=== PATIENT | female | born 1990 | race Caucasian/White ===

== ENCOUNTER 2021-09-09 15:07 | Emergency (ER) | payer OTHER, SELFPAY ==
[2021-09-09 15:17] VITALS: BP 115/77; PULSE 101; RESP 16; TEMP 37.3; O2SAT 98
--- NOTE | 2021-09-09 16:37 | ED.URI ---
HPI - URI/Sore Throat General Chief Complaint: Upper Respiratory Infection Stated Complaint: COUGH Time Seen by Provider: 09/09/21 16:20 Source: patient, RN notes reviewed and old records reviewed Mode of arrival: ambulatory Limitations: no limitations History of Present Illness HPI Narrative: 31-year-old female presents to [facility] with sore throat, cough, runny nose, body aches, sneezing itchy throat for the past 3 days. Patient states she was at work Monday evening started feeling very bad and went home early and has not worked since that day. Her boss stated she needed to be seen since she had missed 3 days of work before returning to work. Patient has had Covid vaccinations but no flu shot. Patient reports history of asthma when in high school but has not had any issues with her breathing in many years. Patient does smoke half pack a day cigarettes. MD elicited complaint: cough, sore throat, rhinorrhea, nasal congestion and other (Sneezing, body aches) Pertinent past history: pneumonia, asthma and other (Tobacco abuse) Onset (ago): day(s) (3) Related Data Allergies Allergy/AdvReac Type Severity Reaction Status Date / Time No Known Allergies Allergy Verified 09/09/21 16:32 Review of Systems Review of Systems: CONSTITUTIONAL:Low grade fever, chills, or sweats. EYES: Denies visual changes, redness, or discharge. ENT: Positive rhinorrhea, congestion, sore throat, sneezing, no otalgia. CARDIOVASCULAR: Denies chest pain, palpitations, or edema. RESPIRATORY: Positive for cough no acute dyspnea. GASTROINTESTINAL: Denies abdominal pain, nausea, vomiting, or diarrhea. GENITOURINARY: Denies dysuria or hematuria. SKIN: Denies rash or itching. MUSCULOSKELETAL: Denies back pain, joint pain,positive for body aches NEUROLOGIC: Denies headache, numbness, or weakness. PSYCHIATRIC: Denies anxiety or depression. All systems reviewed & are unremarkable except as noted in HPI and below PMFSH Past Medical History Medical History (Updated 09/09/21 @ 17:07 by Kourtney Montana NP) Asthma Pneumonia Social History Social History (Updated 09/09/21 @ 17:09 by Kourtney Montana NP) Smoking packs per day: 0.5 Smoking cigarettes per day: 10.0 Smoking status: Current every day smoker Tobacco type: cigarettes Alcohol intake: current Alcohol use details: Social Substance use: never Living arrangements: alone Gender identity (if verbalized by the patient): Female Comments At time of signature, agree with nursing past medical, surgical, social and family history. There is no relevant family history pertinent to the presenting complaint Exam Narrative: GENERAL: Ill-appearing, well-nourished, and in no acute distress. HEAD: Normocephalic, atraumatic. EYES: PERRLA and EOMI. ENT: Nares red with clear rhinorrhea no epistaxis. Mucous membranes moist.TM's normal with good light reflex, throat red with no lesions or exudates no tonsil enlargement. NECK: Supple. no lymphadenopathy CHEST: Clear to auscultation. No respiratory distress.cough, SAO2 98% HEART: Regular rate and rhythm. No murmur heard. Normal peripheral pulses. ABDOMEN: Soft, nontender, nondistended, normal active bowel sounds. EXTREMITIES: Normal range of motion. No edema. SKIN: Warm, dry, no rash. NEURO: No focal deficits. Alert and oriented x3. Course Course Level of Care: Express Care Visit Vital Signs Vital signs: Vital Signs Temperature 37.3 C 09/09/21 15:17 Pulse Rate 101 H 09/09/21 15:17 Respiratory Rate 16 09/09/21 15:17 Blood Pressure 115/77 09/09/21 15:17 Pulse Oximetry 98 09/09/21 15:17 Temperature 37.3 C 09/09/21 15:17 Pulse Rate 101 H 09/09/21 15:17 Respiratory Rate 16 09/09/21 15:17 Blood Pressure 115/77 09/09/21 15:17 Pulse Oximetry 98 09/09/21 15:17 MDM - URI/Sore Throat Differential Diagnosis Differential diagnosis: Likely upper respiratory infection, sinusitis, viral infection, influenza, pharyngi
== END 2021-09-09 16:55 | disposition home or self-care (01) ==
PROVIDERS: Nurse Practitioner; Emergency Provider Registered Nurse
DX: U07.1 COVID-19 (principal); F17.210 Nicotine dependence, cigarettes, uncomplicated; J45.909 Unspecified asthma, uncomplicated
CPT/HCPCS: 87426; 99213; C9803; G0463

== ENCOUNTER 2021-09-14 15:01 | Emergency (ER) | payer OTHER, SELFPAY ==
--- NOTE | ~2021-09-14 | XR_ITS ---
EXAMINATION: XR chest 2V DATE: 09/14/2021 16:01 INDICATION: Chest pain. Cough. TECHNIQUE: Frontal and lateral views of the chest were obtained. COMPARISON: None. FINDINGS: The chest demonstrates clear lungs without pneumonia, pleural effusion, or pneumothorax. Th e heart size is normal. IMPRESSION: 1. No acute cardiopulmonary disease. Reviewed, dictated and finalized at location B. 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
[2021-09-14 15:18] VITALS: BP 114/83; PULSE 95; RESP 16; TEMP 36.6; O2SAT 98
--- NOTE | 2021-09-14 15:40 | ED.URI ---
HPI - URI/Sore Throat General Chief Complaint: Upper Respiratory Infection Stated Complaint: cp Time Seen by Provider: 09/14/21 15:40 Source: patient, RN notes reviewed and old records reviewed Mode of arrival: ambulatory Limitations: no limitations History of Present Illness HPI Narrative: 31-year-old female presents to the [facility] with continued COVID symptoms. Patient states that she is not feeling completely better. Was diagnosed on 09 09 with COVID. Patient is a smoker. Is concerned she might have pneumonia now. Related Data Allergies Allergy/AdvReac Type Severity Reaction Status Date / Time No Known Allergies Allergy Verified 09/15/21 14:54 Review of Systems Review of Systems: All systems reviewed & are unremarkable except as noted in HPI and below Constitutional: Constitutional: Reports no additional constitutional complaints, Denies chills, Denies fever(s) and Denies headache(s) Eyes: Eyes: Reports no additional eye complaints ENT: Reports as per HPI, Denies vertigo, Denies dizziness, Denies headache(s), Denies nasal congestion and Denies sore throat Cardiovascular: Cardiovascular: Reports no additional cardiovascular complaints, Denies chest pain, Denies syncope, Denies rapid heart rate, Denies radiating jaw, neck or arm pain and Denies dyspnea Respiratory: Respiratory: Reports as per HPI, Reports chest congestion, Reports cough, Denies dyspnea and Denies wheezing Gastrointestinal: Gastrointestinal: Reports no additional gastrointestinal complaints, Denies abdominal pain, Denies diarrhea, Denies nausea and Denies vomiting Musculoskeletal: Musculoskeletal: Reports no additional musculoskeletal complaints and Denies numbness Integumentary/Breasts: Skin/Breast: Reports system reviewed and no additional complaints, except as docu Neurologic: Reports system reviewed and no additional complaints, except as documented, Denies vertigo, Denies dizziness, Denies syncope, Denies headache(s), Denies focal weakness and Denies numbness Psychiatric: Psychiatric: Reports no additional psychiatric complaints Allergic/Immunologic: Allergic/Immunologic: Reports no additional allergic/immunologic complaints and Denies wheezing PMFSH Past Medical History Medical History Asthma Pneumonia Social History Social History Smoking packs per day: 0.5 Smoking cigarettes per day: 10.0 Smoking status: Current every day smoker Tobacco type: cigarettes Alcohol intake: current Alcohol use details: Social Substance use: never Gender identity (if verbalized by the patient): Female Comments At the time of my signature, I reviewed and agree with the nursing past medical, surgical, social, and family history. There is no relevant family history pertinent to the patient complaint. Exam Const: General: cooperative, no acute distress, well developed, alert and ill appearing (mild) acutely Nutritional Appearance: well nourished Orientation/consciousness: patient oriented x3 Limitations: no limitations HENMT: Head: normal to inspection Eyes: Conjunctivae: conjunctivae normal Pupils: Equal, round and reactive pupils present Neck: Neck: normal visual inspection, no lymphadenopathy and no meningeal signs Chest: Chest palpation & inspection: normal inspection of the chest Resp: Effort & Inspection: normal respiratory effort and no use of accessory muscles Auscultation: clear to auscultation bilaterally, no crackles, no rales, no rhonchi and no wheezes Cardio: Rate: regular rate Rhythm: regular rhythm Back/Spine/Pelvis: Back: no CVA tenderness Skin: General skin exam: normal color Rashes: no rashes Wounds: no wounds Neuro: General: patient oriented x3, moves all extremities, no meningeal signs and no focal motor deficits Cranial nerves: Yes Equal, round and reactive pupils present Speech: normal speech Gait exam (Neuro): N
== END 2021-09-14 16:28 | disposition home or self-care (01) ==
PROVIDERS: Emergency Provider Nurse Practitioner
DX: U07.1 COVID-19 (principal); J20.8 Acute bronchitis due to other specified organisms; F17.210 Nicotine dependence, cigarettes, uncomplicated; J45.909 Unspecified asthma, uncomplicated
CPT/HCPCS: 71046; 99213; G0463

== ENCOUNTER 2021-09-15 13:18 | Emergency (ER) | payer OTHER, SELFPAY ==
[2021-09-15 13:30] VITALS: BP 125/83; PULSE 89; RESP 24; TEMP 36.6; O2SAT 100
--- NOTE | 2021-09-15 15:26 | ED.GENADULT ---
HPI - General Adult General Chief complaint: Shortness of Breath/Dyspnea Stated complaint: Rule out blood clot Time Seen by Provider: 09/15/21 14:49 History of Present Illness HPI narrative: 31-year-old female that tested positive for COVID on September 09 presents to the emergency department complaining of chest pain chest tightness and shortness of breath. Patient did have follow-up with her primary care physician and did have a chest x-ray performed yesterday. Chest x-ray showed no acute abnormality. Patient states that she does feel increasing shortness of breath with exertion. Patient does report some anterior chest tightness. Patient was referred to the emergency department for a PE work-up. Patient denies any prior history of PE or DVT. Related Data Allergies Allergy/AdvReac Type Severity Reaction Status Date / Time No Known Allergies Allergy Verified 09/15/21 14:54 Review of Systems Review of Systems: CONSTITUTIONAL: Generalized fatigue EYES: Denies visual changes, redness, or discharge. ENT: Denies rhinorrhea, congestion, sore throat, or otalgia. CARDIOVASCULAR: Chest tightness RESPIRATORY: Exertional shortness of breath. GASTROINTESTINAL: Denies abdominal pain, nausea, vomiting, or diarrhea. GENITOURINARY: Denies dysuria or hematuria. SKIN: Denies rash or itching. MUSCULOSKELETAL: Denies back pain, joint pain, or myalgia. NEUROLOGIC: Denies headache, numbness, or weakness. PSYCHIATRIC: Denies anxiety or depression. [facility] Past Medical History Medical History Asthma Pneumonia Social History Social History Smoking packs per day: 0.5 Smoking cigarettes per day: 10.0 Smoking status: Current every day smoker Tobacco type: cigarettes Alcohol intake: current Alcohol use details: Social Substance use: never Gender identity (if verbalized by the patient): Female Exam Narrative: APPEARANCE: Well appearing, no pain in distress, well-nourished. HEAD: normocephalic, atraumatic. RESPIRATORY: Airway patent, respirations nonlabored. Clear to auscultation bilaterally, no rales, rhonchi, wheezing. CARDIOVASCULAR: Regular rate and rhythm without murmurs rubs or gallops. ABDOMINAL: Soft, nontender, nondistended, normal bowel sounds MUSCULOSKELETAL: Moves all extremities. Strength/ROM intact, No edema, No calf tenderness. NEURO: Alert. Cranial nerves II through XII intact. Good gait. Good coordination SKIN: Warm, dry. Normal Color PSYCHIATRIC: Normal affect/mood. Course Course Emergency Course: Patient was updated on the plan for labs including a D-dimer. Reevaluation(s) Reevaluation #1: Patient was updated on the results of her labs and work-up. Patient is not tachycardic. Patient is not hypoxic. Patient's D-dimer was negative. Patient did have a negative chest x-ray. Albuterol is being ordered to see if this helps with her sensation of chest tightness. Patient was updated the plan for treatment of her discharge to home. Patient was also advised on the importance having close follow-up with her primary care physician if she had any worsening symptoms. All questions and concerns were addressed. Patient was in no distress at time of discharge from emergency room. Time: 16:23 Reevaluation #2: Patient reports she had significant improvement of her breathing with the reading treatment. On reexamination lungs are still clear. Time: 16:51 Vital Signs Vital signs: Vital Signs Temperature 97.8 F 09/15/21 13:30 Pulse Rate 89 09/15/21 13:30 Respiratory Rate 24 H 09/15/21 13:30 Blood Pressure 125/83 09/15/21 13:30 Pulse Oximetry 100 09/15/21 13:30 Temperature 97.8 F 09/15/21 13:30 Pulse Rate 70 09/15/21 16:52 Respiratory Rate 18 09/15/21 16:52 Blood Pressure 122/78 09/15/21 16:52 Pulse Oximetry 96 09/15/21 16:52 Medical Decision Making Vital Signs Vital Signs: Vital Signs
[2021-09-15 15:39] LABS: Basophils Percent Auto 0.3 % (0.2-1.2); Hematocrit 40.3 % (37.0-47.0); Hemoglobin 13.7 g/dL (12.0-15.0); Immature Granulocyte Absolute 0.13 K/mm3 (0.00-0.031); Immature Granulocyte Percent A 0.8 % (0-0.5); Lymphocytes Absolute Auto 3.44 K/mm3 (0.9-3.2); Lymphocytes Percent Auto 21.7 % (18.3-44.2); Mean Corpuscular Hemoglobin 31.9 pg (26-34); Mean Corpuscular Volume 93.7 fl (80-100); Mean Platelet Volume 8.9 fl (7.4-10.4); Monocytes Absolute Auto 0.9 K/mm3 (0.1-0.6); Monocytes Percent Auto 5.6 % (2.6-8.5); Neutrophils Absolute Auto 11.3 K/mm3 (1.3-6.7); Neutrophils Percent Auto 71.6 % (45.5-73.1); Platelet Count Result 482 k/mm3 (150-375); Red Cell Distribution Width 12.3 % (11.5-14.5); White Blood Count 15.8 K/mm3 (4.5-10.0)
[2021-09-15 15:49] LABS: Alanine Aminotransferase 21 U/L (4-35); Albumin Level 4.5 g/dL (3.5-5.1); Alkaline Phosphatase 52 U/L (38-126); Anion Gap 8 mmol/L (8-16); Aspartate Amino Transferase 18 U/L (14-36); Bilirubin,Total 0.5 mg/dL (0.2-1.3); Blood Urea Nitrogen 19 mg/dL (7-17); Calcium 9.5 mg/dL (8.4-10.2); Carbon Dioxide 23 mmol/L (22-30); Chloride 106 mmol/L (98-107); Estimated CRCL calculation 94 ml/min; Estimated Glomerular Filt Rate > 60; Glucose 108 mg/dL (65-110); Potassium 3.8 mmol/L (3.4-5.0); Sodium 137 mmol/L (137-145)
[2021-09-15 16:11] LABS: D Dimer 0.27 ug/mL (<0.48)
--- NOTE | 2021-09-15 16:14 | ECG_ITS ---
Measurements Intervals [place] Rate: 53 P: 62 MA: 160 QRS: 44 QRSD: 80 T: 54 QT: 418 QTc: 395 Interpretive Statements SINUS BRADYCARDIA RSR' IN V1 OR V2, PROBABLY NORMAL VARIANT BASELINE ARTIFACT- II, III, AVF BORDERLINE ECG Electronically Signed On 09-15-2021 20:06:04 TRANSIT SPECIALIST by Alexandro Johnston D.O.
[2021-09-15] MEDS: ALBUTEROL SULFATE NEB 2.5 MG/0.5 ML INH 5 MG INHALATION (16:23)
[2021-09-15 16:52] VITALS: BP 122/78; PULSE 70; RESP 18; O2SAT 96
== END 2021-09-15 16:54 | disposition home or self-care (01) ==
PROVIDERS: Emergency Provider Emergency Medicine; PCP Emergency Medicine
DX: U07.1 COVID-19 (principal); R07.89 Other chest pain; F17.210 Nicotine dependence, cigarettes, uncomplicated; J45.909 Unspecified asthma, uncomplicated
CPT/HCPCS: 36415; 80053; 85025; 85380; 93005; 94640; 99283

== ENCOUNTER 2022-01-07 12:56 | Outpatient (CLI) | payer OTHER, SELFPAY ==
--- NOTE | ~2022-01-07 | CT_ITS ---
EXAMINATION: CT lumbar spine wo con DATE: 01/07/2022 13:15 INDICATION: Low back pain. Bilateral sciatica. TECHNIQUE: Computed tomography (CT) of the lumbar spine was performed without intravenous contrast. A utomated exposure control and iterative reconstruction technique were employed. The dose-length produ ct was 642.03 mGy-cm. COMPARISON: None FINDINGS: There is 3 degrees levocurvature of lumbar spine. Vertebral body heights and intervertebral disc heights are normal. The following disc levels are specifically discussed: L1-L2: The disc does not extend beyond the endplate margin. There is mild bilateral facet joint osteo arthritis. There is no neural foraminal stenosis. There is no central canal stenosis. L2-L3: The disc does not extend beyond the endplate margin. There is mild bilateral facet joint osteo arthritis. There is no neural foraminal stenosis. There is no central canal stenosis. L3-L4: The disc is bulging. There is mild bilateral facet joint osteoarthritis. There is mild bilater al neural foraminal stenosis. There is mild central canal stenosis. L4-L5: The disc is bulging. There is mild bilateral facet joint osteoarthritis. There is mild bilater al neural foraminal stenosis. There is mild central canal stenosis. L5-S1: The disc is bulging. There is mild bilateral facet joint osteoarthritis. There is no neural fo raminal stenosis. There is mild central canal stenosis. IMPRESSION: 1. Mild lumbar spondylosis. Reviewed, dictated and finalized at location A. IMPRESSION: 1. Mild lumbar spondylosis.
== END 2022-01-07 12:57 ==
PROVIDERS: PCP Nurse Practitioner Family; Visit Provider Nurse Practitioner Family
DX: M54.41 Lumbago with sciatica, right side (principal); M54.42 Lumbago with sciatica, left side; M47.816 Spondylosis without myelopathy or radiculopathy, lumbar region
CPT/HCPCS: 72131

== ENCOUNTER → 2022-01-28 15:17 | Outpatient (CLI) | payer OTHER, SELFPAY ==
--- NOTE | ~2022-01-28 | MR_ITS ---
EXAMINATION: MR lumbar spine wo con DATE: 01/28/2022 15:49 INDICATION: Acute onset bilateral low back pain TECHNIQUE: Magnetic resonance imaging (MRI) of the lumbar spine was performed without intravenous con trast. Sequences included sagittal T2-weighted FSE, sagittal T2-weighted FS FSE, sagittal T1-weighted FSE, and axial T2-weighted FSE. COMPARISON: 01/07/2022 FINDINGS: Alignment is normal. Vertebral body heights are normal. Small T1 hyperintense hemangiomas at S2. Tiny T1 hyperintense hemangioma at L3. Marrow signal is otherwise normal. Disc heights are normal with no rmal disc signal. The conus medullaris terminates at L1-L2. There is normal signal in the caudal spin al cord. Paravertebral soft tissues are unremarkable. The following disc levels are specifically disc ussed: T12-L1: The disc does not extend beyond the endplate margin. There is minimal right facet joint osteo arthritis. There is no neural foraminal stenosis. There is no central canal stenosis. L1-L2: Negligible disc bulge. There is minimal bilateral facet joint osteoarthritis. There is no neur al foraminal stenosis. There is no central canal stenosis. L2-L3: The disc does not extend beyond the endplate margin. There is mild bilateral facet joint osteo arthritis. There is no neural foraminal stenosis. There is no central canal stenosis. L3-L4: Negligible disc bulge. There is mild bilateral facet joint osteoarthritis. There is minimal bi lateral neural foraminal stenosis. There is no central canal stenosis. L4-L5: Negligible disc bulge. There is mild bilateral facet joint osteoarthritis. There is minimal bi lateral neural foraminal stenosis. There is no central canal stenosis. L5-S1: Disc is mildly bulging. There is mild bilateral facet joint osteoarthritis. There is no neural foraminal stenosis. There is no central canal stenosis. IMPRESSION: 1. Minimal lumbar spondylosis. Reviewed, dictated and finalized at location B.
== END ==
PROVIDERS: PCP Nurse Practitioner Family; Visit Provider Nurse Practitioner Family
DX: M47.815 Spondylosis without myelopathy or radiculopathy, thoracolumbar region (principal); M47.817 Spondylosis without myelopathy or radiculopathy, lumbosacral region; M54.40 Lumbago with sciatica, unspecified side
CPT/HCPCS: 72148

== ENCOUNTER 2023-04-13 08:52 | Outpatient (CLI) | payer OTHER, SELFPAY ==
--- NOTE | ~2023-04-13 | MR_ITS ---
MRI of the cervical spine Clinical History: Ankylosing spondylitis Technique: Axial T2-weighted and gradient images, and sagittal T1-weighted, T2-weighted, and STIR victor m ges were acquired. Findings: There is no fracture or subluxation of the cervical spine. Vertebral bodies maintain normal height and alignment. No suspicious bone marrow signal abnormality seen. No significant disc bulge or herniation seen at any cervical level. No definite spinal canal stenosis , cord compression, or neural foraminal narrowing. No abnormal signal seen in the spinal cord. Prevertebral soft tissues are unremarkable. Impression: No significant abnormality seen. Reviewed, dictated and finalized at location . Impression: No significant abnormality seen.
--- NOTE | ~2023-04-13 | MR_ITS ---
MRI of the lumbar spine Clinical History: Ankylosing spondylitis Technique: Axial T2-weighted images, and sagittal T1-weighted, T2-weighted, and T2 fat-sat images wer e acquired. Findings: There is no fracture or subluxation of the lumbar spine. Vertebral bodies maintain normal h eight and alignment. No suspicious bone marrow signal abnormality seen. There is no disc bulge or herniation at any lumbar level. There are minimal facet joint degenerative changes. No spinal canal stenosis or neural foraminal narrowing at any lumbar level. Paravertebral soft tissues are unremarkable. SI joints appear grossly unremarkable. Impression: No significant abnormality seen. Reviewed, dictated and finalized at location . Impression: No significant abnormality seen.
--- NOTE | ~2023-04-13 | XR_ITS ---
Clinical Indication: Chest pain PA and lateral views of the chest: Comparison: 09/14/2021 Findings: The lungs are clear, without evidence of focal consolidation or pleural effusion. Cardiome diastinal silhouette is within normal limits. Bones and soft tissues are unremarkable. Impression: Normal chest. Reviewed, dictated and finalized at location . Impression: Normal chest.
== END 2023-04-13 08:53 | disposition home or self-care (01) ==
PROVIDERS: PCP Nurse Practitioner Family; Visit Provider Internal Medicine
DX: M45.0 Ankylosing spondylitis of multiple sites in spine (principal); M45.1 Ankylosing spondylitis of occipito-atlanto-axial region; R07.1 Chest pain on breathing
CPT/HCPCS: 71046; 72141; 72148

== ENCOUNTER 2023-10-27 08:34 | Outpatient (RCR) | payer OTHER, SELFPAY ==
[2023-10-27] MEDS: RHO(D) IMMUNE GLOBULIN 300 MCG/2 ML SYRINGE IM (15:51)
== END 2023-10-27 09:00 | disposition home or self-care (01) ==
LOC: ANHOBOP 08:34
PROVIDERS: PCP Nurse Practitioner Family; Visit Provider Obstetrics & Gynecology
DX: O20.0 Threatened abortion (principal); Z29.13 Encounter for prophylactic Rho(D) immune globulin; O36.0130 Maternal care for anti-D [Rh] antibodies, third trimester, not applicable or unspecified; Z3A.00 Weeks of gestation of pregnancy not specified
CPT/HCPCS: 36415; 85461; 86850; 86900; 86901; 90384; 96372; J2790

== ENCOUNTER 2024-02-27 10:40 | Outpatient (RCR) | payer OTHER, SELFPAY ==
[2024-02-28] MEDS: RHO(D) IMMUNE GLOBULIN 300 MCG/2 ML SYRINGE IM (15:02)
== END 2024-05-27 23:59 | disposition home or self-care (01) ==
LOC: ANHLAB 10:40
PROVIDERS: PCP Nurse Practitioner Family; Visit Provider Obstetrics & Gynecology
DX: Z29.13 Encounter for prophylactic Rho(D) immune globulin (principal); O36.0130 Maternal care for anti-D [Rh] antibodies, third trimester, not applicable or unspecified; Z3A.00 Weeks of gestation of pregnancy not specified
CPT/HCPCS: 36415; 85461; 86850; 86900; 86901; 90384; 96372; J2790

== ENCOUNTER 2024-04-29 06:58 | Inpatient (IN) | payer OTHER, SELFPAY ==
[2024-04-29] VITALS (160 sets, daily range): BP systolic 82–155; BP diastolic 41–141; PULSE 58–139; RESP 18; TEMP 36.4–37.4; O2SAT 87–100; BMI 30.6
[2024-04-29 07:24] LABS: Basophils Percent Auto 0.2 % (0.2-1.2); Eosinophils Percent Auto 0.2 % (0-4.4); Hematocrit 29.8 % (37.0-47.0); Hemoglobin 9.4 g/dL (12.0-15.0); Immature Granulocyte Absolute 0.09 K/mm3 (0.00-0.031); Immature Granulocyte Percent A 0.8 % (0-0.5); Lymphocytes Percent Auto 11.9 % (18.3-44.2); Mean Corpuscular HGB Conc 31.5 g/dl (32-36); Mean Corpuscular Hemoglobin 28.5 pg (26-34); Mean Corpuscular Volume 90.3 fl (80-100); Mean Platelet Volume 10.4 fl (7.4-10.4); Monocytes Absolute Auto 0.5 K/mm3 (0.1-0.6); Monocytes Percent Auto 4.5 % (2.6-8.5); Neutrophils Percent Auto 82.4 % (45.5-73.1); Platelet Count Result 254 k/mm3 (150-375); Red Cell Distribution Width 14.6 % (11.5-14.5)
[2024-04-29] MEDS: LACTATED RINGERS 1,000 ML 125 ML IV CONT ×2 (07:30→08:33)
[2024-04-29] MEDS: AMPICILLIN 2 GM/NS 100 ML 2 GM/100 ML BAG IVPB (07:30)
--- NOTE | 2024-04-29 07:33 | LDADM ---
This patient, Yayo Mcnamara, was admitted to Labor/Delivery/Recovery 105 on 04/29/24 at 06:58. Plans for labor, pain management and were discussed with patient. Patient/family oriented to hospital policies and general routines including ID bracelet, bed and alarms, visiting hours, pain management, procedures, bathroom and other care routines, personal items, smoking policy, room service/diet and guest tray routines, infant security routines, and visiting hours. Patient/Family are encouraged to report perceived risks to care and to ask questions if they do not understand what they are told or what they should do. See OBIX for further documentation.
[2024-04-29] MEDS: ONDANSETRON INJ 4 MG/2 ML VIAL IV PUSH (07:55)
[2024-04-29] MEDS: fentaNYL CITRATE INJ (*CRX) 100 MCG/2 ML VIAL IV PUSH (07:55)
[2024-04-29 08:00] LABS: Rapid Plasma Reagin Non-Reactive (NonReactive)
[2024-04-29 08:17] LABS: HIV 1/2 Ab P24 Ag Result Negative (Negative)
--- NOTE | 2024-04-29 08:29 | WPDANESEPP ---
Anes - Eval Pre Procedure Procedure: Labor epidural Date/Time: 04/29/24 08:29 Surgeon: Herminio Preop Diagnosis: Abdominal pain with contractions Pre Op Diagnosis: Labor Patient Data Age: 34 Gender: F Height: 1.57 m Weight: 76 kg Last Vital Signs Pulse 69 04/29/24 08:15 BP 139/96 H 04/29/24 08:15 O2 Del Method Room Air 04/29/24 07:33 Allergies Allergy/AdvReac Type Severity Reaction Status Date / Time No Known Allergies Allergy Verified 09/15/21 14:54 Home Medications Medication Instructions Recorded Confirmed Type albuterol sulfate 90 mcg/actuation 1 inh inhalation QID PRN shortness 09/15/21 Rx aerosol inhaler of breath or wheezing #6.7 grams duloxetine 60 mg capsule,delayed 90 mg PO DAILY 04/19/24 04/19/24 History release (Cymbalta) prenat.vits,mohsen,[id number] 1 tablet 04/19/24 History Laboratory Tests 04/29/24 07:18 WBC 11.0 H K/mm3 (4.5-10.0) RBC 3.30 L M/mm3 (4.2-5.4) Hgb 9.4 L D g/dL (12.0-15.0) Hct 29.8 L % (37.0-47.0) MCV 90.3 fl (80-100) MCH 28.5 pg (26-34) MCHC 31.5 L g/dl (32-36) RDW 14.6 H % (11.5-14.5) Plt Count 254 k/mm3 (150-375) MPV 10.4 fl (7.4-10.4) Immature Gran % (Auto) 0.8 H % (0-0.5) Neut % (Auto) 82.4 H % (45.5-73.1) Lymph % (Auto) 11.9 L % (18.3-44.2) [place] % (Auto) 4.5 % (2.6-8.5) Eos % (Auto) 0.2 % (0-4.4) Baso % (Auto) 0.2 % (0.2-1.2) Lymph # (Auto) 1.30 K/mm3 (0.9-3.2) [place] # (Auto) 0.5 K/mm3 (0.1-0.6) Eos # (Auto) 0.0 K/mm3 (0-0.3) Baso # (Auto) 0.0 K/mm3 (0.0-0.1) Abs Immat Gran (auto) 0.09 H K/mm3 (0.00-0.031) Absolute Neuts (auto) 9.0 H K/mm3 (1.3-6.7) Absolute Nucleated RBC 0.000 K/mm3 (0.0-0.012) Nucleated RBC % 0.0 % (0.0-0.2) RPR Non-reactive (NonReactive) HIV 1&2 Ab/P24 Ag 4thGn Negative (Negative) Blood Type A Negative Antibody Screen Positive Antibody Identification Pending Antigen Identification Pending JOSH, IgG Interpret Pending JOSH, Poly Interpret Pending JOSH, Complement Interp Pending : gestational age HCG: positive Patient hx anesthesia problems: none Family hx anesthesia problems: none Results Review: All pre-operative results and documents have been reviewed as part of the pre-operative evaluation. [facility] Past Medical History Medical History (Updated 04/29/24 @ 08:30 by Ming Velarde Jr., CRNA) Asthma Pneumonia and not yet delivered Family History Family History Mother Heart disease Cervical cancer Grandparent Heart disease Father Brain tumor Social History Social History Smoking packs per day: 0.5 Smoking cigarettes per day: 10.0 Smoking status: Smoker, status unknown Tobacco type: e-cigarettes/vaping Second hand tobacco smoke exposure: Yes Alcohol intake: current Alcohol use details: Social Substance use: current Other substance usage details: occasional Last use: unsure Do You Feel Safe in your Home?: Yes Lack of Transportation: No Lack of Food: Never True Current Housing: I Have Housing Concerned About Future Housing: No Difficulty Paying Gas/Electric Bills: No Difficulty Paying for Meds: No Currently Unemployed: No Education: Associate Degree Difficulty w/ Childcare or Family Care: No Living arrangements: alone Gender identity (if verbalized by the patient): Female Spiritual care concerns: No Exam Day of Procedure 04/29/24 08:29 Patient weight: overweight Airway: Mallampati scale class II
--- NOTE | 2024-04-29 09:06 | WPDOBADMIT ---
Obstetrics - Admit Note Admission Note: record reviewed. No pertinent additions to the history and/or any subsequent changes in the physical findings that are not consistent with the expected course of the were found. Spontaneous labor, Romplus positive on admission, SVE 6cm per RN. Waiting for epidural. Expectant management Additions to the history and/or subsequent changes in the physical findings follow. None.
[2024-04-29] MEDS: AMPICILLIN 1 GM/NS 50 ML 1 GM/50 ML BAG IVPB ×2 (11:26→15:31)
--- NOTE | 2024-04-29 12:05 | PM.OBPNLAB ---
Pain Control Date/time seen: 04/29/24 12:05 Pain control: epidural Pelvic Exam Dilation (cm): 8 Effacement (%): 100 station: -2 Amniotic membrane status: Ruptured (meconium) Assessment and Plan Assessment: active labor Plan: continuous present management
[2024-04-29] MEDS: OXYTOCIN 30 UNITS/NS 500 ML 30 UNITS/500 ML BAG IV CONT (13:30)
[2024-04-29] MEDS: OXYTOCIN 30 UNITS/NS 500 ML 30 UNITS/500 ML BAG 125 UNITS IV CONT (16:57)
[2024-04-29] MEDS: ACETAMINOPHEN 325 MG TABLET 650 MG PO (18:38)
[2024-04-29] MEDS: WITCH HAZEL 40 PADS 1 PAD TOPICAL (19:11)
[2024-04-29] MEDS: BENZOCAINE 20% AER SPR (*SP) 56 GM CAN 1 SPRAY TOPICAL (19:11)
--- NOTE | 2024-04-29 19:25 | OBPPTRN ---
Patient transferred to post room #285 via wheelchair @ 1925. Support person present. Oriented to unit, room, information board, rooming in, admission packet and security measures. Patient verbalizes understanding.
--- NOTE | 2024-04-29 21:02 | PM.OBPRVD ---
OB - Vaginal Delivery Note Procedure Delivery date: 04/29/24 Delivery augmentation: Rupture of Membranes and Pitocin Delivery monitor: External FHT and External Uterine Route of delivery: Episiotomy description: None Laceration Description: Perineal - 2nd Degree Delivery repair: vicryl Specimen: No Quantitative Blood Loss (ml): 100 Anesthesia type: Epidural Disposition: Floor Complications: No immediate complications Narrative: See H&P and notes for details on patient's admission and labor. She progressed to complete cervical dilation and at the appropriate time began pushing. With adequate expulsive efforts by the mother, the baby's head was delivered without difficulty. Nuchal cord was present x1 and was delivered through. The baby's left shoulder was anterior and delivered under the pubic symphysis without difficulty. The posterior shoulder and the rest of the baby delivered without difficulty. The umbilical cord was doubly clamped and cut after 60 seconds of delayed cord clamping. Care of the infant was then assumed by the nursing staff. Baby Date of : 04/29/24 Gestational Age by Date: 37 Infant gender: Male Weight (pounds): 6 presentation: vertex position: Left Occiput Anterior Placenta delivery description: Expressed Cord Vessel Description: 3 Vessels, Nuchal Cord and Delayed Cord Clamping
[2024-04-29] MEDS: HYDROcodone/acetaminophen (*CRX) 5-325 MG TABLET 1 TAB PO (21:29)
[2024-04-30 00:34] VITALS: BP 116/79; PULSE 79; RESP 12; TEMP 36.7; O2SAT 100
[2024-04-30 05:30] LABS: Hematocrit 29.3 % (37.0-47.0); Hemoglobin 9.4 g/dL (12.0-15.0)
[2024-04-30] MEDS: HYDROcodone/acetaminophen (*CRX) 5-325 MG TABLET 1 TAB PO ×3 (06:52→18:35)
[2024-04-30] MEDS: DOCUSATE SODIUM 100 MG CAPSULE PO (06:53)
[2024-04-30] MEDS: POLYSACCHARIDE IRON COMPLEX 150 MG CAPSULE PO ×2 (06:53→20:28)
[2024-04-30] MEDS: MULTIVIT/MIN/PREN/FOL AC/IRON TABLET 1 TAB PO (06:53)
[2024-04-30] MEDS: DULoxetine HCL 30 MG CAPSULE.DR 90 MG PO (07:30)
[2024-04-30 08:00] VITALS: BP 104/62; PULSE 88; RESP 19; TEMP 36.4; O2SAT 99
--- NOTE | 2024-04-30 08:06 | WPDANLDPN2 ---
Anes-Prog Note L&D Date/Time: 04/30/24 08:06 Comfortable throughout: labor and delivery Neuraxial method: epidural Epidural/Spinal procedure site: clean & non-tender Neuro status: Neuro function grossly intact. Cardiovascular status: normal Respiratory status: normal Airway patency: baseline Mental status: baseline Post-Op hydration status: normal Vital Signs: Last Vital Signs Temp 36.7 C 04/30/24 00:34 Pulse 79 04/30/24 00:34 Resp 12 04/30/24 00:34 BP 116/79 04/30/24 00:34 Pulse Ox 100 04/30/24 00:34 O2 Del Method Room Air 04/29/24 07:33 Pain score (VAS): 0/10 I/O: Intake & Output 04/29/24 04/30/24 04/30/24 23:59 07:59 15:59 Output Total 170 Balance -170 Post-procedural complaints: none Patient feedback: Patient satisfied with anesthetic care.
--- NOTE | 2024-04-30 08:29 | PM.OBPNVD ---
OB - PN: Subj Subjective Date/time seen: 04/30/24 08:29 Interval history: PPD#1 Pain somewhat controlled, mostly at area of laceration Voiding without issue Passing flatus Tolerating general diet Combo feeding, discussed pumping if baby not latching OB - PN: Obj Data Labs 04/30/24 03:49 Labs: Laboratory Results - last 24 hr 04/29/24 04/30/24 04/30/24 07:18 03:48 03:49 Hgb 9.4 L Hct 29.3 L Blood Type A Negative Antibody Screen Positive Antibody Identification Passive Due to RH Imm Glob Cancelled Antigen Identification Cancelled Cancelled JOSH, IgG Interpret Neg Cancelled JOSH, Poly Interpret Not Performed Cancelled JOSH, Complement Interp Negative Cancelled Screen Negative Baby's Blood Type A pos Baby's JOSH Negative Doses of RhIg Required 1 OB - PN A/P Assessment and Plan (1) (spontaneous vaginal delivery): Code(s): O80 - Encounter for full-term uncomplicated delivery Status: Acute Plan day: 1 Plan: routine care Time Spent With Patient Time: Total time spent is greater than 50% in coordination of care (as documented) at patient's floor/unit and/or counseling patient: Review of Systems Review of Systems: All systems reviewed & are unremarkable except as noted in HPI and below Exam Const: General: comfortable and no acute distress Orientation/consciousness: patient oriented x3 Resp: Effort & Inspection: normal respiratory effort
[2024-04-30] MEDS: ACETAMINOPHEN 325 MG TABLET 650 MG PO (08:48)
[2024-04-30 12:00] VITALS: BP 126/78; PULSE 66; RESP 17; TEMP 36.4; O2SAT 98
[2024-04-30] MEDS: ONDANSETRON INJ 4 MG/2 ML VIAL IV PUSH (12:14)
[2024-04-30] MEDS: RHO(D) IMMUNE GLOBULIN 300 MCG/2 ML SYRINGE IM (12:21)
[2024-04-30 20:00] VITALS: BP 115/81; PULSE 92; RESP 18; TEMP 36.4; O2SAT 100
[2024-05-01] MEDS: ACETAMINOPHEN 325 MG TABLET 650 MG PO ×3 (01:30→17:20)
[2024-05-01] MEDS: HYDROcodone/acetaminophen (*CRX) 5-325 MG TABLET 1 TAB PO (01:30)
[2024-05-01] MEDS: ZOLPIDEM TARTRATE (*CRX) 5 MG TABLET PO (02:21)
[2024-05-01 08:20] VITALS: BP 116/88; PULSE 64; RESP 12; TEMP 36.4; O2SAT 100
--- NOTE | 2024-05-01 08:23 | PM.OBPNVD ---
OB - PN: Subj Subjective Date/time seen: 05/01/24 08:23 Interval history: PPD#2 Pain control improved Voiding without issue Passing flatus Tolerating general diet Baby in level II nursery, will stay in no care bed OB - PN: Obj Data Labs 04/30/24 03:49 Labs: Laboratory Results - last 24 hr 04/30/24 03:48 Blood Type A Negative Antibody Screen Positive Antibody Identification Cancelled Antigen Identification Cancelled JOSH, IgG Interpret Cancelled JOSH, Poly Interpret Cancelled JOSH, Complement Interp Cancelled Screen Negative Baby's Blood Type A pos Baby's JOSH Negative Doses of RhIg Required 1 OB - PN A/P Assessment and Plan (1) (spontaneous vaginal delivery): Code(s): O80 - Encounter for full-term uncomplicated delivery Status: Acute Plan day: 2 Plan: routine care and discharge home Time Spent With Patient Time: Total time spent is greater than 50% in coordination of care (as documented) at patient's floor/unit and/or counseling patient: Review of Systems Review of Systems: All systems reviewed & are unremarkable except as noted in HPI and below Exam Const: General: comfortable and no acute distress Resp: Effort & Inspection: normal respiratory effort
[2024-05-01] MEDS: MULTIVIT/MIN/PREN/FOL AC/IRON TABLET 1 TAB PO (08:28)
[2024-05-01] MEDS: POLYSACCHARIDE IRON COMPLEX 150 MG CAPSULE PO ×2 (08:28→17:21)
--- NOTE | 2024-05-01 08:35 | PM.OBDSVD ---
DS: Admitting Diagnosis Discharge Date 05/01/24 Admitting Diagnosis labor DS: Discharge Diagnosis Discharge Diagnosis (1) (spontaneous vaginal delivery): Code(s): O80 - Encounter for full-term uncomplicated delivery Status: Acute OB - DS: Summary OB Procedures : None OB Procedures Intrapartum: Spontaneous Vag Delivery OB Procedures: : None Peripartum Data Laceration Description: Perineal - 2nd Degree Episiotomy description: None Time Spent with Patient Time attestation: Total time spent providing and/or coordinating discharge services: DS: Data Data Completed and Pending Labs on day of discharge: Labs from last 24 hours 04/30/24 03:48 Blood Type A Negative Antibody Screen Positive Antibody Identification Cancelled Antigen Identification Cancelled JOSH, IgG Interpret Cancelled JOSH, Poly Interpret Cancelled JOSH, Complement Interp Cancelled Screen Negative Baby's Blood Type A pos Baby's JOSH Negative Doses of RhIg Required 1 Discharge Plan Discharge Attending physician on discharge: Shelton Durham Discharging Clinician: Shelton Durham Patient Disposition: Home, Self-Care Activity: may shower and pelvic rest Diet: as tolerated Patient Instructions: Antibiotic Form Stand Alone Forms: General Discharge Information Follow-up/Referrals: Shelton Durham MD [Physician] - 4 Weeks Discharge Medications: New ibuprofen 600 mg tablet 600 mg PO Q6H PRN (Reason: pain) Qty: 30 0RF polyethylene glycol 3350 [Miralax] 17 gram/dose powder 17 g PO DAILY Qty: 238 0RF docusate sodium 100 mg capsule 100 mg PO BID Qty: 60 0RF Continued #2 Tablet 1 tablet duloxetine [Cymbalta] 60 mg Capsule,Delayed Release(Dr/Ec) 90 mg PO DAILY albuterol sulfate 90 mcg/actuation HFA aerosol inhaler 1 inh inhalation QID PRN (Reason: shortness of breath or wheezing) Qty: 6.7 0RF Date of admission: 04/29/24 06:58 Primary Care Provider: RlBritany Admitting Provider: Shelton Durham Attending physician on admission: Shelton Durham Condition: Stable
[2024-05-01] MEDS: DULoxetine HCL 30 MG CAPSULE.DR 90 MG PO (08:36)
[2024-05-01] MEDS: HYDROcodone/acetaminophen (*CRX) 10-325 MG TABLET 1 TAB PO ×3 (08:44→18:50)
--- NOTE | 2024-05-01 09:02 | PC.NURSE ---
On 05/01/24, the student, Lexi Hernandez, provided care and completed [facility] documentation on this patient. I have reviewed the student's documentation and agree with the findings.
[2024-05-01] MEDS: DOCUSATE SODIUM 100 MG CAPSULE PO ×2 (10:02→17:21)
[2024-05-01] MEDS: DIBUCAINE 1% OINTMENT 30 GM TUBE 1 APPLIC TOPICAL (10:04)
[2024-05-01] MEDS: PHENYLEPH/MINERAL OIL/PETROLAT OINTMENT 57 GM 1 APPLIC RECTAL (10:04)
[2024-05-01] MEDS: WITCH HAZEL 40 PADS 1 PAD TOPICAL (10:09)
--- NOTE | 2024-05-02 14:43 | PCCCNOTE ---
Met with pt. and MUKUND King today. This is pt.'s first child. Pt. has all necessary equipment at home including a car seat, crib, and other belongings. Pt. plans to breast feed and pump at discharge. Attempting to do this here with assistance of nurse. Pt. confirms she recreationally smokes marijuana. Denies any reliance on the substance. Denies any other substance use. Offered resources for , she declines. Pt. confirms she has an OB and package worker to follow at discharge. Pt. denies any other case management needs. Pt. is complaining of nausea and requesting to speak to the nurse, RN was notified at desk.
== END 2024-05-01 19:05 | disposition home or self-care (01) | DRG 807 ==
LOC: ANHLDR 07:11 → ANHOB2 19:28
PROVIDERS: Admitting Provider Obstetrics & Gynecology; PCP Family Medicine; Visit Provider Obstetrics & Gynecology
DX: O69.81X0 Labor and delivery complicated by cord around neck, without compression, not applicable or unspecified (principal); Z37.0 Single live birth; O70.1 Second degree perineal laceration during delivery; O77.0 Labor and delivery complicated by meconium in amniotic fluid; Z3A.37 37 weeks gestation of pregnancy
CPT/HCPCS: 36415; 85014; 85018; 85025; 85461; 86592; 86703; 86850; 86880; 86900; 86901; 88307; 90384; A9270; G0432; J0290; J2405; J2590; J2790; J2795; J3010; J7120